=== PATIENT | female | born 1945 | race Two or more races ===

== ENCOUNTER 2021-01-23 05:28 | Day surgery (SDC) | payer OTHER ==
[~2021-01-23 05:28] MED LIST: AVALIDE 300-121 EACH PO; CARDIZEM CD240 MG PO; GABAPENTIN300 M2 PO; HUMALOG100 UNIT/2; LANTUS SOL100 UNIT/1; PEPCID AC10 MG PO; XARELTO20 MG PO
== END 2021-01-23 10:00 | disposition home or self-care (01) ==
LOC: CIR.AMB 05:28
PROVIDERS: ATTEND Colon & Rectal Surgery
DX: T85.111A Breakdown (mechanical) of implanted electronic neurostimulator of peripheral nerve electrode (lead), initial encounter (principal); Z20.822 Contact with and (suspected) exposure to COVID-19
CPT/HCPCS: 64590; 95971; L8679